=== PATIENT | female | born 1970 | race Caucasian/White ===

== ENCOUNTER 2025-07-22 09:42 | Outpatient (CLI) | payer MEDICARE, MEDICAID ==
[~2025-07-22 09:42] MED LIST: ONDA4TAB59 PO
--- NOTE | 2025-07-22 11:55 | RADIOLOGY REPORT ---
EXAM: CT CT CHEST HISTORY: OTHER NONSPECIFIC ABNORMAL FINDING OF LUNG FIELD 55-year-old female former smoker with noncalcified lung nodules, follow-up. COMPARISON: No comparison studies are available. TECHNIQUE: Helical CT images of the chest were performed without contrast. Sagittal and coronal reformatted images were obtained. This CT exam was performed using one or more of the following dose reduction techniques: Automated exposure control, adjustment of the mA and/or kV according to patient size, or use of iterative reconstruction technique. Radiation Dose: CT Dose: CTDI volume is 8.95 mGy. Dose-length product is 324.08 mGy*cm FINDINGS: There is a lobulated 2.1 cm mass in the right lower lobe (image 48, series 3) with irregular margins and adjacent small satellite nodules. There are calcified granulomas in both lungs. There is moderate centrilobular emphysema of the upper lobes. No pneumothorax, pulmonary edema, pleural eff usions, noncalcified pulmonary nodules, or consolidative infiltrates. No suspicious mediastinal or axillary adenopathy. The heart is not enlarged. No thoracic aortic aneurysm. No fractures are identified about the bony thorax. There are bilateral breast implants. There is moderate thoracic degenerative disc disease. IMPRESSION: 1. Right lower lobe 2.1 cm mass with irregular margins is highly suspicious for primary lung malignancy. Recommend follow-up PET-CT for better characterization. Recommend comparison with any previous chest imaging which was not made available for my viewing at this time. Recommend pulmonology consulta tion if not already obtained. 2. Centrilobular emphysema. 3. Old granulomatous disease of the chest.
== END 2025-07-22 23:59 | disposition home or self-care (01) ==
LOC: RAD 09:42
PROVIDERS: ATTEND Family Medicine
DX: R91.8 Other nonspecific abnormal finding of lung field (principal); J43.2 Centrilobular emphysema; J84.10 Pulmonary fibrosis, unspecified
CPT/HCPCS: 71250